=== PATIENT | male | born 1995 | race Caucasian/White ===

== ENCOUNTER 2017-06-06 22:06 | Emergency (ER) | payer BC ==
[~2017-06-06] VITALS: Ht 175.3 cm; Wt 102.1 kg
[2017-06-06 22:15] VITALS: BP 156/107
== END 2017-06-07 01:52 | disposition left against medical advice (07) ==
LOC: ER 22:06
DX: R10.9 Unspecified abdominal pain (principal); Z53.21 Procedure and treatment not carried out due to patient leaving prior to being seen by health care provider